=== PATIENT | female | born 1965 | race Caucasian/White ===

== ENCOUNTER 2016-12-31 11:30 | Inpatient (IN) | payer BC, MEDICARE ==
[~2016-12-31] VITALS: Ht 162.6 cm; Wt 58.2 kg
[~2016-12-31 11:30] MED LIST: AFINITOR5 MG; AMOXICILLIN 8751 TAB PO; ATIVAN 1MG T1 MG/TAB PO; ATIVAN1 MG PO; DOLOPHINE HCL5 MG PO; FENTANYL 50MCG TP; METHADONE5 MG PO; NEURONTIN100 MG/CAP PO; OMNICEF 300MG300 MG PO; ROXANOL 20MG20 MG/ML PO; ROXANOL20 MG/ML PO; SEE INSTRUCTIONS IT; [UNRECOGNIZED DRUG - CODE] TL
[2016-12-31 13:15] LABS: MEAN CELL VOLUME 90 fl (80.0-100.0); MEAN CORPUSCULAR HGB CONC 33 g/dl (33.0-37.0); PLATELET COUNT 339 K/mm3 (130-400); RED BLOOD COUNT 3.46 M/mm3 (4.10-5.30); REDCELL DISTRIBUTION WIDTH-CV 14.6 % (11.5-14.5); WHITE BLOOD COUNT 2.4 K/mm3 (4.8-10.8)
[2016-12-31 13:26] LABS: HEMOGLOBIN 10.1 g/dl (12.5-16.0); MEAN CORPUSCULAR HEMOGLOBIN 29 pg (27.0-31.0)
[2016-12-31 13:27] LABS: ADD PATHOLOGY DIFF REVIEW NO
[2016-12-31 13:32] LABS: ALANINE AMINOTRANSFERASE 19 U/L (9-52); ALBUMIN 2.8 gm/dL (3.5-5.0); ALKALINE PHOSPHATASE 279 U/L (50-136); ANION GAP 9 mmol/L (7-16); BILIRUBIN,TOTAL 1.2 mg/dL (0.0-1.0); BLOOD UREA NITROGEN 8 mg/dL (7-17); CARBON DIOXIDE 34 mmol/L (22-30); CHLORIDE 93 mmol/L (98-107); CREATININE, serum 0.52 mg/dL (0.52-1.25); GLUCOSE 113 mg/dL (74-106); MAGNESIUM 1.9 mg/dL (1.6-2.3); PHOSPHOROUS 2.2 mg/dL (2.5-4.5); POTASSIUM 3.3 mmol/L (3.4-5.0); SODIUM 136 mmol/L (137-145); TOTAL PROTEIN 6.5 gm/dL (6.4-8.2)
[2016-12-31 13:45] LABS: TROPONIN-I < 0.012 ng/mL (0.000-0.034)
[2016-12-31 14:31] LABS: B-TYPE NATRIURETIC PEPTIDE 103 pg/mL (0-125)
[2016-12-31 14:36] LABS: BAND 21 % (0-10); BASOPHIL 2 % (0-2); NEUTROPHILS 29 % (42.0-75.2); PLATELET ESTIMATE NORMAL (NORMAL); TOTAL CELLS COUNTED 100
[2016-12-31 14:39] LABS: ANISOCYTOSIS 1+
[2016-12-31 14:54] LABS: PH 6 (5-8); SQUAMOUS EPITHELIAL 0-2 /hpf; URINE APPEARANCE Clear; URINE BACTERIA None Seen /hpf; URINE BILIRUBIN Negative (NEGATIVE); URINE BLOOD Negative (NEGATIVE); URINE COLOR Yellow; URINE GLUCOSE Negative (NEGATIVE); URINE KETONE 1+ (NEGATIVE); URINE UROBILINOGEN >=4.0 mg/dL (NEGATIVE); URINE WBC 0-2 /hpf
[2016-12-31] MEDS ORDERED: DOLOPHINE HCL5 MG PO (15:29)
[2016-12-31] MEDS ORDERED: [UNRECOGNIZED DRUG - CODE] TL (15:30)
[2016-12-31] MEDS ORDERED: FENTANYL 50MCG TD (15:31)
[2016-12-31] MEDS ORDERED: ROXANOL 20MG20 MG/ML PO (15:32)
[2016-12-31 18:34] VITALS: BP 114/75; PULSE 110; TEMP 99.3
[2016-12-31 20:47] VITALS: BP 104/67; PULSE 112; TEMP 98.8
[2017-01-01] VITALS (7 sets, daily range): BP systolic 104–127; BP diastolic 54–75; PULSE 72–118; TEMP 97.3–99.8
[2017-01-01 07:29] LABS: MEAN CELL VOLUME 92 fl (80.0-100.0); MEAN CORPUSCULAR HGB CONC 31 g/dl (33.0-37.0); PLATELET COUNT 334 K/mm3 (130-400); RED BLOOD COUNT 3.19 M/mm3 (4.10-5.30); REDCELL DISTRIBUTION WIDTH-CV 14.6 % (11.5-14.5); WHITE BLOOD COUNT 2.4 K/mm3 (4.8-10.8)
[2017-01-01 07:41] LABS: HEMATOCRIT 29.3 % (37.0-47.0); HEMOGLOBIN 9.2 g/dl (12.5-16.0); MEAN CORPUSCULAR HEMOGLOBIN 29 pg (27.0-31.0)
[2017-01-01 07:42] LABS: ADD PATHOLOGY DIFF REVIEW NO; ADJUSTED CALCIUM 8.5 mg/dL (8.4-10.2); ALBUMIN 2.4 gm/dL (3.5-5.0); BILIRUBIN,TOTAL 0.8 mg/dL (0.0-1.0); CALCIUM 7.2 mg/dL (8.4-10.2); CREATININE, serum 0.48 mg/dL (0.52-1.25); POTASSIUM 3.1 mmol/L (3.4-5.0); TOTAL PROTEIN 5.7 gm/dL (6.4-8.2)
[2017-01-01 09:49] LABS: BAND 32 % (0-10); HYPOCHROMIA 2+; METAMYELOCYTE 1 % (0-0); NEUTROPHILS 29 % (42.0-75.2); PLATELET ESTIMATE NORMAL (NORMAL); TOTAL CELLS COUNTED 100
[2017-01-02] VITALS (7 sets, daily range): BP systolic 96–117; BP diastolic 64–75; PULSE 91–117; TEMP 97.4–98.8
[2017-01-03 04:38] VITALS: BP 111/69; PULSE 102; TEMP 97.9
[2017-01-03] MEDS ORDERED: DIFLUCAN 100MG100 MG PO (08:08)
[2017-01-03] MEDS ORDERED: DECADRON 4MG TAB4 MG PO (08:09)
[2017-01-03 08:34] VITALS: BP 103/67; PULSE 100; TEMP 98.4
[2017-01-03] MEDS ORDERED: DIFLUCAN150 MG PO (12:51)
== END 2017-01-03 12:50 | disposition home or self-care (01) | DRG 641 ==
LOC: COL.ER 11:30 → MEDICAL 14:37
PROVIDERS: Emergency Medicine; Nurse Practitioner Family
DX: E86.0 Dehydration (principal); E44.0 Moderate protein-calorie malnutrition; C78.7 Secondary malignant neoplasm of liver and intrahepatic bile duct; C79.51 Secondary malignant neoplasm of bone; C78.01 Secondary malignant neoplasm of right lung; C78.02 Secondary malignant neoplasm of left lung; C79.31 Secondary malignant neoplasm of brain; B37.0 Candidal stomatitis; Z85.3 Personal history of malignant neoplasm of breast
CPT/HCPCS: 99223-AI; 99233-AI; 99239; A9585; J1450; J1650; J2060; J2185; J3370; J7030; J7050; J8540

== ENCOUNTER 2017-01-09 16:00 | Outpatient (RCR) | payer BC, MEDICARE ==
[~2017-01-09 16:00] MED LIST changes: -MORPHINE SULF2 MG/M1 SQ; -MUCINEX FAST-M180 M2; -NEURONTIN300 MG/CAP PO
[2017-03-12] MEDS ORDERED: ATIVAN 1MG T1 MG/TAB PO (10:10)
[2017-03-12] MEDS ORDERED: NEURONTIN300 MG/CAP PO (10:11)
[2017-03-12] MEDS ORDERED: MORPHINE SULF2 MG/M1 SQ (10:12)
[2017-03-12] MEDS ORDERED: MUCINEX FAST-M180 M2 (11:48)
== END 2017-03-17 | disposition home or self-care (01) ==
LOC: MKS.ESL.OT
DX: R53.81 Other malaise (principal); Z85.3 Personal history of malignant neoplasm of breast
CPT/HCPCS: G8996-GN; G8997-GN; G8998-GN

== ENCOUNTER → 2017-01-09 | Outpatient (CLI) | payer BC, MEDICARE ==
[~2017-01-09] MED LIST changes: +DECADRON 4MG TAB4 MG PO; +DIFLUCAN 100MG100 MG PO; +DIFLUCAN150 MG PO; +FENTANYL 50MCG TD; +MORPHINE SULF2 MG/M1 SQ; +MUCINEX FAST-M180 M2; +NEURONTIN300 MG/CAP PO; +[UNRECOGNIZED DRUG - CODE] TL
== END ==
LOC: COL.VAS 01-08 09:45
DX: C50.411 Malignant neoplasm of upper-outer quadrant of right female breast (principal)

== ENCOUNTER → 2017-02-20 | Outpatient (CLI) | payer MEDICARE, BC ==
[~2017-02-20] MED LIST changes: +MORPHINE SULF2 MG/M1 SQ; +MUCINEX FAST-M180 M2; +NEURONTIN300 MG/CAP PO
== END ==
LOC: COL.RAD 09:00
DX: G93.9 Disorder of brain, unspecified (principal); C50.411 Malignant neoplasm of upper-outer quadrant of right female breast; C79.51 Secondary malignant neoplasm of bone
CPT/HCPCS: A9585

== ENCOUNTER 2017-03-12 07:37 | Inpatient (IN) | payer BC, MEDICARE ==
[2017-03-12] VITALS (759 sets, daily range): BP systolic 78–105; BP diastolic 54–71; PULSE 132–148; TEMP 97.3–98.4; O2SAT 84–100
[~2017-03-12] VITALS: Ht 170.2 cm; Wt 71.8 kg
[~2017-03-12 07:37] MED LIST changes: -MORPHINE SULF2 MG/M1 SQ; -MUCINEX FAST-M180 M2; -NEURONTIN300 MG/CAP PO
[2017-03-12 08:10] LABS: MEAN CELL VOLUME 100 fl (80.0-100.0); MEAN CORPUSCULAR HGB CONC 31 g/dl (33.0-37.0); MEAN PLATELET VOLUME 11.1 fl (7.4-10.4); PLATELET COUNT 458 K/mm3 (130-400); RED BLOOD COUNT 3.37 M/mm3 (4.10-5.30); REDCELL DISTRIBUTION WIDTH-CV 17.6 % (11.5-14.5)
[2017-03-12 08:10] LABS: ARTERIAL BLD GAS O2 SATURATION 94.9 % (92-100); ARTERIAL BLD GAS TCO2 CT 47.2; ARTERIAL BLOOD GAS BASE EXCESS 8.5 (-2-2); ARTERIAL BLOOD GAS HCO3 42.6 meq/L (22-26); ARTERIAL BLOOD GAS PO2 97.1 mmHg (80-100)
[2017-03-12 08:12] LABS: ARTERIAL BLOOD GAS pH 7.07 (7.35-7.45); ATS? YES
[2017-03-12 08:14] LABS: HEMATOCRIT 33.7 % (37.0-47.0); HEMOGLOBIN 10.3 g/dl (12.5-16.0); MEAN CORPUSCULAR HEMOGLOBIN 31 pg (27.0-31.0); WHITE BLOOD COUNT 40.4 K/mm3 (4.8-10.8)
[2017-03-12 09:00] LABS: INR 1.1 (0.8-3.0); PROTHROMBIN TIME 12.2 SECONDS (9.7-12.8)
[2017-03-12 09:02] LABS: BAND 20 % (0-10); EOSINOPHIL 2 % (0-4); METAMYELOCYTE 4 % (0-0); MYELOCYTE 2 % (0-0); NEUTROPHILS 70 % (42.0-75.2); PLATELET ESTIMATE INCREASED (NORMAL); TOTAL CELLS COUNTED 100
[2017-03-12 09:03] LABS: ANISOCYTOSIS 2+; HYPOCHROMIA 1+; POLYCHROMASIA 1+; TOXIC GRANULATION PRESENT
[2017-03-12 09:03] LABS: PARTIAL THROMBOPLASTIN TIME 27.2 SECONDS (26.0-37.0)
[2017-03-12 09:04] LABS: ADD PATHOLOGY DIFF REVIEW YES
[2017-03-12 09:17] LABS: ADJUSTED CALCIUM 9.4 mg/dL (8.4-10.2); ALBUMIN 2.9 gm/dL (3.5-5.0); BILIRUBIN,TOTAL 0.7 mg/dL (0.0-1.0); CALCIUM 8.5 mg/dL (8.4-10.2); CREATININE, serum 0.62 mg/dL (0.52-1.25); POTASSIUM 4.5 mmol/L (3.4-5.0)
[2017-03-12 09:21] LABS: ARTERIAL BLD GAS O2 SATURATION 95.8 % (92-100); ARTERIAL BLD GAS TCO2 CT 32.5; ARTERIAL BLOOD GAS BASE EXCESS 1.2 (-2-2); ARTERIAL BLOOD GAS HCO3 30.2 meq/L (22-26); ARTERIAL BLOOD GAS pH 7.22 (7.35-7.45); OXYHEMOGLOBIN 94.7 %
[2017-03-12 09:22] LABS: ATS? YES
[2017-03-12 09:23] LABS: ABG VENTILATOR TIDAL VOLUME 320 mL
[2017-03-12 09:34] LABS: PROLACTIN 174.5 ng/mL (3.0-18.6)
[2017-03-12 10:07] LABS: PH 5 (5-8); SQUAMOUS EPITHELIAL 0-2 /hpf; URINE APPEARANCE Hazy; URINE BACTERIA None Seen /hpf; URINE BILIRUBIN Negative (NEGATIVE); URINE BLOOD Negative (NEGATIVE); URINE COLOR Yellow; URINE GLUCOSE Negative (NEGATIVE); URINE KETONE Negative (NEGATIVE); URINE RBC 0-2 /hpf; URINE UROBILINOGEN Negative (NEGATIVE)
[2017-03-12] MEDS ORDERED: ATIVAN 1MG T1 MG/TAB PO (10:10)
[2017-03-12] MEDS ORDERED: NEURONTIN300 MG/CAP PO (10:11)
[2017-03-12] MEDS ORDERED: MORPHINE SULF2 MG/M1 SQ (10:12)
[2017-03-12] MEDS ORDERED: MUCINEX FAST-M180 M2 (11:48)
[2017-03-12 14:24] LABS: MEAN CELL VOLUME 100 fl (80.0-100.0); MEAN CORPUSCULAR HGB CONC 31 g/dl (33.0-37.0); MEAN PLATELET VOLUME 9.9 fl (7.4-10.4); PLATELET COUNT 361 K/mm3 (130-400); RED BLOOD COUNT 3.34 M/mm3 (4.10-5.30); REDCELL DISTRIBUTION WIDTH-CV 17.3 % (11.5-14.5)
[2017-03-12 14:27] LABS: HEMATOCRIT 33.5 % (37.0-47.0); HEMOGLOBIN 10.4 g/dl (12.5-16.0); MEAN CORPUSCULAR HEMOGLOBIN 31 pg (27.0-31.0); WHITE BLOOD COUNT 38.6 K/mm3 (4.8-10.8)
[2017-03-12 14:30] LABS: ADD PATHOLOGY DIFF REVIEW NO
[2017-03-12 14:46] LABS: BAND 26 % (0-10); METAMYELOCYTE 1 % (0-0); NEUTROPHILS 70 % (42.0-75.2); TOTAL CELLS COUNTED 100
[2017-03-12 14:50] LABS: PLATELET ESTIMATE NORMAL (NORMAL)
[2017-03-12 14:52] LABS: ANISOCYTOSIS 1+; HYPOCHROMIA 1+
[2017-03-12 14:54] LABS: TOXIC GRANULATION PRESENT
[2017-03-12 17:07] LABS: GRANULAR CAST >12 /lpf; HYALINE CAST >12 /lpf; PH 5 (5-8); SQUAMOUS EPITHELIAL 0-2 /hpf; URINE APPEARANCE Clear; URINE BACTERIA None Seen /hpf; URINE BILIRUBIN Negative (NEGATIVE); URINE BLOOD Negative (NEGATIVE); URINE COLOR Yellow; URINE GLUCOSE Negative (NEGATIVE); URINE KETONE Negative (NEGATIVE); URINE RBC 0-2 /hpf; URINE UROBILINOGEN Negative (NEGATIVE); URINE WBC 0-2 /hpf
[2017-03-12 17:17] LABS: ARTERIAL BLD GAS O2 SATURATION 93.9 % (92-100); ARTERIAL BLOOD GAS BASE EXCESS 4.7 (-2-2); ARTERIAL BLOOD GAS HCO3 37.3 meq/L (22-26); ARTERIAL BLOOD GAS PO2 80.5 mmHg (80-100); OXYHEMOGLOBIN 93.1 %
[2017-03-12 17:19] LABS: ATS? YES
[2017-03-12 17:20] LABS: ABG VENTILATOR TIDAL VOLUME 220 mL
[2017-03-12 18:53] LABS: ALLEN TEST YES; ALLENS TEST RESULT PASS; ARTERIAL BLD GAS O2 SATURATION 96.2 % (92-100); ARTERIAL BLD GAS TCO2 CT 35.4; ARTERIAL BLOOD GAS BASE EXCESS 6.2 (-2-2); ARTERIAL BLOOD GAS HCO3 33.4 meq/L (22-26); ARTERIAL BLOOD GAS PO2 80.9 mmHg (80-100); ARTERIAL BLOOD GAS pH 7.34 (7.35-7.45); ATS? YES
[2017-03-13] VITALS (901 sets, daily range): BP systolic 87–116; BP diastolic 63–97; PULSE 95–154; TEMP 97.7–99.6; O2SAT 94–100
[2017-03-13 05:19] LABS: ARTERIAL BLOOD GAS pH 7.41 (7.35-7.45)
[2017-03-13 05:20] LABS: ALLEN TEST YES; ALLENS TEST RESULT PASS; ARTERIAL BLD GAS O2 SATURATION 98.1 % (92-100); ARTERIAL BLD GAS TCO2 CT 29.4; ARTERIAL BLOOD GAS BASE EXCESS 2.9 (-2-2); ARTERIAL BLOOD GAS PO2 123.4 mmHg (80-100); ATS? YES
[2017-03-13 06:23] LABS: MEAN CELL VOLUME 99 fl (80.0-100.0); MEAN CORPUSCULAR HGB CONC 31 g/dl (33.0-37.0); MEAN PLATELET VOLUME 10.2 fl (7.4-10.4); PLATELET COUNT 410 K/mm3 (130-400); RED BLOOD COUNT 2.84 M/mm3 (4.10-5.30); REDCELL DISTRIBUTION WIDTH-CV 17.2 % (11.5-14.5)
[2017-03-13 06:24] LABS: HEMATOCRIT 28.2 % (37.0-47.0); HEMOGLOBIN 8.6 g/dl (12.5-16.0); MEAN CORPUSCULAR HEMOGLOBIN 30 pg (27.0-31.0); WHITE BLOOD COUNT 34.3 K/mm3 (4.8-10.8)
[2017-03-13 06:25] LABS: ADD PATHOLOGY DIFF REVIEW NO
[2017-03-13 06:35] LABS: ADJUSTED CALCIUM 8.2 mg/dL (8.4-10.2); ALBUMIN 2.2 gm/dL (3.5-5.0); BILIRUBIN,TOTAL 0.6 mg/dL (0.0-1.0); CALCIUM 6.8 mg/dL (8.4-10.2); CREATININE, serum 0.52 mg/dL (0.52-1.25); MAGNESIUM 1.5 mg/dL (1.6-2.3); PHOSPHOROUS 1.6 mg/dL (2.5-4.5); POTASSIUM 4.2 mmol/L (3.4-5.0); TOTAL PROTEIN 4.7 gm/dL (6.4-8.2)
[2017-03-13 06:42] LABS: BAND 13 % (0-10); MYELOCYTE 1 % (0-0); NEUTROPHILS 81 % (42.0-75.2); TOTAL CELLS COUNTED 100
[2017-03-13 06:43] LABS: ANISOCYTOSIS 2+; PLATELET ESTIMATE INCREASED (NORMAL)
[2017-03-13 06:44] LABS: HYPOCHROMIA 1+
[2017-03-13 06:49] LABS: PROLACTIN 43.4 ng/mL (3.0-18.6)
[2017-03-14] VITALS (1133 sets, daily range): BP systolic 92–118; BP diastolic 61–83; PULSE 114–130; TEMP 97–99.9; O2SAT 89–100
[2017-03-14 05:41] LABS: ARTERIAL BLD GAS O2 SATURATION 98.4 % (92-100); ARTERIAL BLD GAS TCO2 CT 26.8; ARTERIAL BLOOD GAS BASE EXCESS 1.3 (-2-2); ARTERIAL BLOOD GAS HCO3 25.6 meq/L (22-26); ARTERIAL BLOOD GAS PHT 7.43 C (7.35-7.45); ARTERIAL BLOOD GAS pH 7.43 (7.35-7.45); OXYHEMOGLOBIN 97.3 %
[2017-03-14 05:42] LABS: ARTERIAL BLOOD GAS PO2 151.1 mmHg (80-100); ARTERIAL BLOOD GAS pH 7.43 (7.35-7.45)
[2017-03-14 05:43] LABS: ALLEN TEST YES; ALLENS TEST RESULT PASS; ARTERIAL BLD GAS O2 SATURATION 98.4 % (92-100); ARTERIAL BLD GAS TCO2 CT 26.8; ARTERIAL BLOOD GAS BASE EXCESS 1.3 (-2-2); ARTERIAL BLOOD GAS HCO3 25.6 meq/L (22-26); ATS? YES
[2017-03-14 06:01] LABS: BASO # 0.1 (0.0-0.2); BASO % 0.3 % (0.0-2.0); GRAN # 22.9 (1.4-6.5); GRAN % 95.3 % (42.2-75.2); LYMPH # 0.4 (1.2-3.4); LYMPH % 1.7 % (20.0-51.0); MEAN CELL VOLUME 96 fl (80.0-100.0); MEAN CORPUSCULAR HGB CONC 32 g/dl (33.0-37.0); MEAN PLATELET VOLUME 10.1 fl (7.4-10.4); MONO # 0.4 (0.1-0.6); MONO % 1.7 % (1.7-9.3); PLATELET COUNT 323 K/mm3 (130-400); RED BLOOD COUNT 2.68 M/mm3 (4.10-5.30); REDCELL DISTRIBUTION WIDTH-CV 17.9 % (11.5-14.5)
[2017-03-14 06:14] LABS: ADJUSTED CALCIUM 8.2 mg/dL (8.4-10.2); ALANINE AMINOTRANSFERASE 15 U/L (9-52); ALBUMIN 2.1 gm/dL (3.5-5.0); ALKALINE PHOSPHATASE 294 U/L (50-136); ANION GAP 7 mmol/L (7-16); BILIRUBIN,TOTAL 0.6 mg/dL (0.0-1.0); BLOOD UREA NITROGEN 14 mg/dL (7-17); CALCIUM 6.7 mg/dL (8.4-10.2); CARBON DIOXIDE 24 mmol/L (22-30); CHLORIDE 105 mmol/L (98-107); CREATININE, serum 0.45 mg/dL (0.52-1.25); GLUCOSE 118 mg/dL (74-106); MAGNESIUM 1.9 mg/dL (1.6-2.3); PHOSPHOROUS 1.1 mg/dL (2.5-4.5); POTASSIUM 3.3 mmol/L (3.4-5.0); SODIUM 137 mmol/L (137-145); TOTAL PROTEIN 4.6 gm/dL (6.4-8.2)
[2017-03-14 06:19] LABS: HEMATOCRIT 25.8 % (37.0-47.0); HEMOGLOBIN 8.2 g/dl (12.5-16.0); MEAN CORPUSCULAR HEMOGLOBIN 31 pg (27.0-31.0)
[2017-03-14 06:34] LABS: TOTAL IRON BINDING CAPACITY 209 ug/dL (265-497)
[2017-03-14 19:20] LABS: MAGNESIUM 1.9 mg/dL (1.6-2.3); PHOSPHOROUS 1.8 mg/dL (2.5-4.5); POTASSIUM 3.8 mmol/L (3.4-5.0)
[2017-03-14 19:54] LABS: ARTERIAL BLOOD GAS PO2 151.1 mmHg (80-100); ARTERIAL BLOOD GAS PO2T 151.1 (80-100)
[2017-03-14 19:55] LABS: ALLEN TEST NO; ATS? NO
[2017-03-15] VITALS (796 sets, daily range): BP systolic 99–120; BP diastolic 59–83; PULSE 122–147; TEMP 97.7–99.7; O2SAT 75–99
[2017-03-15 05:22] LABS: ARTERIAL BLD GAS O2 SATURATION 97.1 % (92-100); ARTERIAL BLD GAS TCO2 CT 23.7; ARTERIAL BLOOD GAS BASE EXCESS -2.2 (-2-2); ARTERIAL BLOOD GAS HCO3 22.5 meq/L (22-26); ARTERIAL BLOOD GAS PHT 7.38 C (7.35-7.45); ARTERIAL BLOOD GAS PO2 90.3 mmHg (80-100); ARTERIAL BLOOD GAS PO2T 90.3 (80-100); ARTERIAL BLOOD GAS pH 7.38 (7.35-7.45); OXYHEMOGLOBIN 95.8 %
[2017-03-15 05:26] LABS: ALLEN TEST YES; ATS? YES
[2017-03-15 05:55] LABS: BASO % 0.1 % (0.0-2.0); EOS % 0.2 % (0-4.0); GRAN # 19.1 (1.4-6.5); GRAN % 93.6 % (42.2-75.2); LYMPH # 0.5 (1.2-3.4); LYMPH % 2.5 % (20.0-51.0); MEAN CELL VOLUME 95 fl (80.0-100.0); MEAN CORPUSCULAR HGB CONC 33 g/dl (33.0-37.0); MEAN PLATELET VOLUME 10.4 fl (7.4-10.4); MONO # 0.5 (0.1-0.6); MONO % 2.5 % (1.7-9.3); PLATELET COUNT 282 K/mm3 (130-400); RED BLOOD COUNT 3.18 M/mm3 (4.10-5.30); REDCELL DISTRIBUTION WIDTH-CV 17.4 % (11.5-14.5)
[2017-03-15 06:16] LABS: HEMATOCRIT 30.2 % (37.0-47.0); HEMOGLOBIN 9.9 g/dl (12.5-16.0); MEAN CORPUSCULAR HEMOGLOBIN 31 pg (27.0-31.0)
[2017-03-15 06:17] LABS: WHITE BLOOD COUNT 20.4 K/mm3 (4.8-10.8)
[2017-03-15 06:19] LABS: ADJUSTED CALCIUM 8.1 mg/dL (8.4-10.2); BILIRUBIN,TOTAL 0.8 mg/dL (0.0-1.0); CALCIUM 6.5 mg/dL (8.4-10.2); CREATININE, serum 0.49 mg/dL (0.52-1.25); MAGNESIUM 1.7 mg/dL (1.6-2.3); POTASSIUM 3.4 mmol/L (3.4-5.0); TOTAL PROTEIN 4.8 gm/dL (6.4-8.2)
[2017-03-15 12:35] LABS: MAGNESIUM 2.4 mg/dL (1.6-2.3); PHOSPHOROUS 1.9 mg/dL (2.5-4.5); POTASSIUM 3.4 mmol/L (3.4-5.0)
[2017-03-15 22:49] LABS: PHOSPHOROUS 2.7 mg/dL (2.5-4.5); POTASSIUM 3.5 mmol/L (3.4-5.0)
[2017-03-15 23:03] LABS: MAGNESIUM 1.9 mg/dL (1.6-2.3)
[2017-03-15 23:30] LABS: ADD PATHOLOGY DIFF REVIEW NO; HEMATOCRIT 32.5 % (37.0-47.0); HEMOGLOBIN 9.9 g/dl (12.5-16.0); MEAN CELL VOLUME 99 fl (80.0-100.0); MEAN CORPUSCULAR HEMOGLOBIN 30 pg (27.0-31.0); MEAN CORPUSCULAR HGB CONC 31 g/dl (33.0-37.0); MEAN PLATELET VOLUME 10.2 fl (7.4-10.4); PLATELET COUNT 358 K/mm3 (130-400); RED BLOOD COUNT 3.29 M/mm3 (4.10-5.30); REDCELL DISTRIBUTION WIDTH-CV 18.3 % (11.5-14.5); WHITE BLOOD COUNT 32.8 K/mm3 (4.8-10.8)
[2017-03-15 23:37] LABS: ANISOCYTOSIS 2+; BAND 11 % (0-10); NEUTROPHILS 78 % (42.0-75.2); PLATELET ESTIMATE NORMAL (NORMAL); TOTAL CELLS COUNTED 100
[2017-03-15 23:39] LABS: ADJUSTED CALCIUM 8.3 mg/dL (8.4-10.2); ALBUMIN 2.6 gm/dL (3.5-5.0); BILIRUBIN,TOTAL 1.3 mg/dL (0.0-1.0); CALCIUM 7.2 mg/dL (8.4-10.2); CREATININE, serum 0.52 mg/dL (0.52-1.25); MAGNESIUM 1.9 mg/dL (1.6-2.3); POTASSIUM 3.8 mmol/L (3.4-5.0); TOTAL PROTEIN 5.5 gm/dL (6.4-8.2)
[2017-03-16] VITALS (1113 sets, daily range): BP systolic 70–119; BP diastolic 43–83; PULSE 148–164; TEMP 97.6–100.5; O2SAT 3–100
[2017-03-16 05:34] LABS: BASO # 0.1 (0.0-0.2); BASO % 0.3 % (0.0-2.0); EOS % 0.1 % (0-4.0); GRAN # 22.5 (1.4-6.5); GRAN % 91.6 % (42.2-75.2); LYMPH # 0.5 (1.2-3.4); MEAN CELL VOLUME 99 fl (80.0-100.0); MEAN CORPUSCULAR HGB CONC 31 g/dl (33.0-37.0); MEAN PLATELET VOLUME 10.4 fl (7.4-10.4); MONO # 1.2 (0.1-0.6); MONO % 4.8 % (1.7-9.3); RED BLOOD COUNT 3.14 M/mm3 (4.10-5.30); REDCELL DISTRIBUTION WIDTH-CV 18.4 % (11.5-14.5)
[2017-03-16 05:59] LABS: HEMATOCRIT 31.2 % (37.0-47.0); HEMOGLOBIN 9.6 g/dl (12.5-16.0); MEAN CORPUSCULAR HEMOGLOBIN 31 pg (27.0-31.0); PLATELET COUNT 253 K/mm3 (130-400); WHITE BLOOD COUNT 24.6 K/mm3 (4.8-10.8)
[2017-03-16 06:05] LABS: ADJUSTED CALCIUM 8.6 mg/dL (8.4-10.2); ALBUMIN 2.7 gm/dL (3.5-5.0); BILIRUBIN,TOTAL 1.7 mg/dL (0.0-1.0); CALCIUM 7.6 mg/dL (8.4-10.2); CREATININE, serum 0.67 mg/dL (0.52-1.25); MAGNESIUM 1.9 mg/dL (1.6-2.3); PHOSPHOROUS 3.4 mg/dL (2.5-4.5); POTASSIUM 4.3 mmol/L (3.4-5.0); TOTAL PROTEIN 5.5 gm/dL (6.4-8.2)
[2017-03-16 06:33] LABS: ARTERIAL BLOOD GAS pH 7.19 (7.35-7.45)
[2017-03-16 06:34] LABS: ARTERIAL BLOOD GAS BASE EXCESS -7.4 (-2-2); ARTERIAL BLOOD GAS HCO3 21.2 meq/L (22-26)
[2017-03-16 11:48] LABS: PATHOLOGY DIFF REVIEW OK
[2017-03-16 20:59] LABS: ARTERIAL BLD GAS O2 SATURATION 69.4 % (92-100); ARTERIAL BLD GAS TCO2 CT 13.7; ARTERIAL BLOOD GAS BASE EXCESS -15.6 (-2-2); ARTERIAL BLOOD GAS HCO3 12.6 meq/L (22-26)
[2017-03-16 21:00] LABS: ALLEN TEST YES; ALLENS TEST RESULT PASS; ARTERIAL BLOOD GAS PHT 7.14 C (7.35-7.45); ARTERIAL BLOOD GAS PO2 42.6 mmHg (80-100); ARTERIAL BLOOD GAS PO2T 42.6 (80-100); ARTERIAL BLOOD GAS pH 7.14 (7.35-7.45); ATS? YES
[2017-03-16 22:17] LABS: BASO # 0.1 (0.0-0.2); BASO % 0.3 % (0.0-2.0); GRAN # 27.7 (1.4-6.5); GRAN % 84.6 % (42.2-75.2); HEMATOCRIT 30.6 % (37.0-47.0); HEMOGLOBIN 9.4 g/dl (12.5-16.0); LYMPH # 1.7 (1.2-3.4); LYMPH % 5.2 % (20.0-51.0); MEAN CELL VOLUME 101 fl (80.0-100.0); MEAN CORPUSCULAR HEMOGLOBIN 31 pg (27.0-31.0); MEAN CORPUSCULAR HGB CONC 31 g/dl (33.0-37.0); MEAN PLATELET VOLUME 10.8 fl (7.4-10.4); MONO # 1.8 (0.1-0.6); MONO % 5.3 % (1.7-9.3); PLATELET COUNT 246 K/mm3 (130-400); RED BLOOD COUNT 3.04 M/mm3 (4.10-5.30); REDCELL DISTRIBUTION WIDTH-CV 18.5 % (11.5-14.5)
[2017-03-16 22:17] LABS: VENOUS BLOOD GAS BE -11.6 (-4-4); VENOUS BLOOD GAS SAO2 71.8 % (60-80)
[2017-03-16 22:18] LABS: WHITE BLOOD COUNT 32.8 K/mm3 (4.8-10.8)
[2017-03-16 22:19] LABS: VENOUS BLOOD GAS SITE CENTRAL LINE
[2017-03-16 22:26] LABS: ADJUSTED CALCIUM 8.4 mg/dL (8.4-10.2); ALBUMIN 2.5 gm/dL (3.5-5.0); BILIRUBIN,TOTAL 3.1 mg/dL (0.0-1.0); CALCIUM 7.2 mg/dL (8.4-10.2); CREATININE, serum 1.18 mg/dL (0.52-1.25); PHOSPHOROUS 6.2 mg/dL (2.5-4.5); POTASSIUM 5.1 mmol/L (3.4-5.0)
== END 2017-03-17 09:12 | disposition expired | DRG 163 ==
LOC: COL.ER 07:37 → ICU 08:59
PROVIDERS: Anesthesiology Critical Care Medicine; Emergency Medicine; Family Medicine; Internal Medicine; Internal Medicine Pulmonary Disease
PROC: 0BH17EZ Insertion of Endotracheal Airway into Trachea, Via Natural or Artificial Opening (ICD-10-PCS; principal; 2017-03-12)
PROC: 0B968ZZ Drainage of Right Lower Lobe Bronchus, Via Natural or Artificial Opening Endoscopic (ICD-10-PCS; 2017-03-12)
PROC: 0B9B8ZZ Drainage of Left Lower Lobe Bronchus, Via Natural or Artificial Opening Endoscopic (ICD-10-PCS; 2017-03-12)
PROC: 5A1945Z Respiratory Ventilation, 24-96 Consecutive Hours (ICD-10-PCS; 2017-03-12)
PROC: 0B968ZZ Drainage of Right Lower Lobe Bronchus, Via Natural or Artificial Opening Endoscopic (ICD-10-PCS; 2017-03-13)
PROC: 0B9B8ZZ Drainage of Left Lower Lobe Bronchus, Via Natural or Artificial Opening Endoscopic (ICD-10-PCS; 2017-03-13)
DX: J96.02 Acute respiratory failure with hypercapnia (principal); J69.0 Pneumonitis due to inhalation of food and vomit; R65.21 Severe sepsis with septic shock; Z66 Do not resuscitate; A41.9 Sepsis, unspecified organism; C79.31 Secondary malignant neoplasm of brain; C79.51 Secondary malignant neoplasm of bone; C78.7 Secondary malignant neoplasm of liver and intrahepatic bile duct; C78.01 Secondary malignant neoplasm of right lung; C78.02 Secondary malignant neoplasm of left lung; E44.0 Moderate protein-calorie malnutrition; E87.2 Acidosis; C78.2 Secondary malignant neoplasm of pleura; J96.01 Acute respiratory failure with hypoxia; D64.9 Anemia, unspecified; Z85.3 Personal history of malignant neoplasm of breast; I46.9 Cardiac arrest, cause unspecified; E83.42 Hypomagnesemia; E87.6 Hypokalemia
CPT/HCPCS: 99223-AI; 99232-AI; 99233-AI; A7048; C1751; C1894; C9113; J0171; J1450; J1644; J1650; J1885; J1940; J1953; J1956; J2060; J2310; J2370; J2543; J2704; J2765; J3010; J3370; J3475; J3480; J7030; J7040; J7050; J7060; P9016; P9047